=== PATIENT | male | born 1975 | race Caucasian/White ===

== ENCOUNTER 2020-09-23 15:25 | Emergency (ER) | payer OTHER ==
[2020-09-23] MEDS ORDERED: Bacitracin Oint 1 GM U/D Packet TOP ONE (15:47)
--- NOTE | 2020-09-23 16:12 | EDM.PDOC ---
ED HPI GENERAL MEDICAL PROBLEM - General Chief Complaint: Laceration Stated Complaint: CUT RIGHT LEG Time Seen by Provider: 09/23/20 15:45 Source of Information: Reports: Patient, Family History Limitations: Reports: No Limitations - History of Present Illness INITIAL COMMENTS - FREE TEXT/NARRATIVE: 45-year-old male cut his right lower leg on a dock within the last hour. He has a 4 cm longitudinal laceration on the anterior aspect of the lower leg distal to the knee. CMS is intact. No other injury. He is otherwise healthy. Onset: Sudden Duration: Hour(s): (1 hour ago) Location: Reports: Lower Extremity, Right Associated Symptoms: Reports: No Other Symptoms Right Leg Pain Score (Numeric/FACES): 5 - Related Data Allergies Allergy/AdvReac Type Severity Reaction Status Date / Time erythromycin base Allergy Hives Verified 09/23/20 15:48 Sulfa (Sulfonamide Allergy Hives Verified 09/23/20 15:48 Antibiotics) steroids Allergy Body Aches Uncoded 09/23/20 15:50 Home Meds: Home Meds Losartan [Cozaar] 50 mg PO DAILY 09/23/20 [History] Past Medical History HEENT History: Reports: Other (See Below) Immunologic History: Reports: HIV - Infectious Disease History Infectious Disease History: Reports: Chicken Pox, Measles, Mumps - Past Surgical History HEENT Surgical History: Reports: Other (See Below) Other HEENT Surgeries/Procedures: nose surgey ear surgery Social & Family History - Tobacco Use Tobacco Use Status *Q: Never Tobacco User Second Hand Smoke Exposure: No - Caffeine Use Caffeine Use: Reports: Coffee, Soda - Alcohol Use Days Per Week of Alcohol Use: 2 Number of Drinks Per Day: 2 Total Drinks Per Week: 4 - Recreational Drug Use Recreational Drug Use: No ED ROS GENERAL - Review of Systems Review Of Systems: See Below Constitutional: Denies: Fever, Chills Respiratory: Denies: Shortness of Breath Cardiovascular: Denies: Chest Pain GI/Abdominal: Denies: Nausea, Vomiting Skin: Reports: Other (See HPI) Neurological: Denies: Paresthesia ED EXAM, SKIN/RASH Exam: See Below Exam Limited By: No Limitations General Appearance: Alert, No Apparent Distress Head: Atraumatic Neck: Normal Inspection Respiratory/Chest: No Respiratory Distress Cardiovascular: Regular Rate, Rhythm Extremities: Other (The right anterior lower leg distal to the knee has a 4 cm longitudinal laceration just medial to the edge of the tibia.) Neurological: Alert, Oriented, No Motor/Sensory Deficits Psychiatric: Normal Affect, Normal Mood Course - Vital Signs Last Recorded V/S: Last Vital Signs Temp 98.1 F 09/23/20 15:57 Pulse 79 09/23/20 15:57 Resp 16 09/23/20 15:57 BP 161/85 H 09/23/20 15:57 Pulse Ox 99 09/23/20 15:57 - Orders/Labs/Meds Meds: Medications Discontinued Medications Generic Name Dose Route Start Last Admin Trade Name Myra PRN Reason Stop Dose Admin Bacitracin 1 dose 09/23/20 15:47 09/23/20 15:59 Bacitracin Oint 1 Gm U/D Packet TOP 09/23/20 15:48 1 dose ONETIME ONE Administration Lidocaine HCl 5 ml 09/23/20 15:47 09/23/20 15:59 Lidocaine 1% 5 Ml Sdv INJECT 09/23/20 15:48 5 ml ONETIME ONE Administration - Re-Assessments/Exams Free Text/Narrative Re-Assessment/Exam: 09/23/20 18:16 The wound was anesthetized with 1% lidocaine, cleansed thoroughly with saline and all clots were removed. No significant underlying structures were involved, distal CMS was intact. Six 4-0 Ethilon sutures were used to close the wound. Topical bacitracin and a wraparound pressure dressing was applied, sutures can be removed in 9 days. Increase activity as tolerated, return sooner if concerns of infection or not healing satisfactorily. Departure - Departure Time of Disposition: 16:22 Disposition: Home, Self-Care 01 Clinical Impression: Laceration of right lower leg Qualifiers: Encounter type: initial encounter Qualified Code(s): S81.811A - Laceration without foreign body, right lower leg, initial encounter - Discharge Information Instructions: Laceration Care, Adult Referrals: PCP,None [Primary Care Provider] - Forms: ED Department Discharge Care Plan Goals: Keep wound covered and clean while healing, increase activity as tolerated and sutures can be removed next Thursday, the . Recheck sooner if concerns of infection or not healing satisfactorily. Sepsis Event Note (ED) - Evaluation Sepsis Screening Result: No Definite Risk - Focused Exam Vital Signs: Vital Signs Temp Pulse Resp BP Pulse Ox 09/23/20 15:57 98.1 F 79 16 161/85 H 99 09/23/20 15:46 98.1 F 79 16 161/85 H 99
== END 2020-09-23 16:22 | disposition home or self-care (01) ==
LOC: JP.ED 15:25
DX: S81.811A Laceration without foreign body, right lower leg, initial encounter (principal); Z88.1 Allergy status to other antibiotic agents; Z88.2 Allergy status to sulfonamides; Z88.8 Allergy status to other drugs, medicaments and biological substances; W26.8XXA Contact with other sharp object(s), not elsewhere classified, initial encounter
CPT/HCPCS: 12002; 99282-25